=== PATIENT | female | born 1960 ===

== ENCOUNTER 2022-08-08 08:03 | Outpatient (CLI) | payer OTHER | END 2022-08-08 08:10 | disposition home or self-care (01) | LOC: RAD 08:03 | PROVIDERS: ATTEND Surgery | DX: K59.09 Other constipation (principal); N81.6 Rectocele; K64.3 Fourth degree hemorrhoids; K62.5 Hemorrhage of anus and rectum ==

== ENCOUNTER 2022-09-08 12:00 | Inpatient (IN) | payer OTHER ==
[~2022-09-08] VITALS: Ht 160 cm; Wt 70.3 kg
[2022-09-14] MEDS ORDERED: SIMVASTATIN40 MG (13:38)
[2022-09-14] MEDS ORDERED: OMEGA-3 ACID ETH1 GM (13:38)
[2022-09-15] MEDS ORDERED: TRAM1TAB98 PO (14:41)
[2022-09-15] MEDS ORDERED: DICLOFENAC SODI75 MG PO (14:42)
== END 2022-09-15 15:32 | disposition home or self-care (01) | DRG 748 ==
LOC: O/R 09-14 08:14 → SURH 09-14 12:00 → SURG 09-14 15:41 → SURH 09-14 15:45 → SURG 09-15 15:32
PROVIDERS: ADMIT Surgery; ATTEND Surgery
PROC: 06BY0ZC Excision of Hemorrhoidal Plexus, Open Approach (ICD-10-PCS; 2022-09-14)
PROC: 3E0T3BZ Introduction of Anesthetic Agent into Peripheral Nerves and Plexi, Percutaneous Approach (ICD-10-PCS; 2022-09-14)
PROC: 0JQC0ZZ Repair Pelvic Region Subcutaneous Tissue and Fascia, Open Approach (ICD-10-PCS; principal; 2022-09-14 15:45)
DX: N81.6 Rectocele (principal); K64.8 Other hemorrhoids; Z20.822 Contact with and (suspected) exposure to COVID-19